=== PATIENT | female | born 1995 | race African-American/Black ===

== ENCOUNTER 2019-07-06 06:35 | Inpatient (IN) ==
[2019-07-06] MEDS ORDERED: MEPERIDINE 50 MG/1 ML VIAL IV PRN (07:33)
[2019-07-06] MEDS ORDERED: ONDANSETRON 4 MG/2 ML VIAL IV PRN (07:33)
[2019-07-06] MEDS ORDERED: BUTORPHANOL 2 MG/ML VIAL IV PRN (07:33)
[2019-07-06] MEDS ORDERED: diphenhydrAMINE 50 MG/1 ML VIAL IV PRN ×2 (07:39)
[2019-07-06] MEDS ORDERED: PROMETHAZINE 25 MG/1 ML VIAL IM ONE (07:39)
[2019-07-06] MEDS ORDERED: hydrOXYzine HCL 25 MG/1 ML VIAL IM PRN (07:39)
[2019-07-06] MEDS ORDERED: NALOXONE 0.4 MG/ML VIAL IV PRN (07:39)
[2019-07-06] MEDS ORDERED: ePHEDrine 50 MG/ML AMP IV PRN (07:39)
[2019-07-06] MEDS ORDERED: LACTATED RINGERS 1,000 ML IV PRN (07:43)
[2019-07-06] MEDS ORDERED: CITRIC ACID/SODIUM CITRATE 30 ML UDCUP PO ONE (07:43)
[2019-07-06] MEDS ORDERED: FAMOTIDINE 20 MG/2 ML VIAL IV ONE (07:43)
[2019-07-06 08:03] LABS: Basophils % 0.5 % (0.0-0.8); Eosinophils # 0.1 10*3/uL (0.0-0.87); Eosinophils % 1.4 % (0.00-10.9); Hematocrit 35.9 VOL% (35.7-47.0); Hemoglobin 11.1 GM/DL (12.0-16.0); Immature Granulocytes % 0.5 %; Immature Granulocytes Absolute 0.04 #; Lymphocytes # 1.6 10*3/uL (1.4-4.0); Lymphocytes % 19.5 % (21.3-54.2); Mean Corpuscular HGB Conc 30.9 GM/DL (32-36); Mean Corpuscular Volume 80.5 FL (87-102); Mean Platelet Volume 12.7 FL (9.6-12.0); Monocytes % 8.3 % (1.7-12.7); Neutrophils % 69.8 % (38.7-73.9); Platelet Count 132 T/CUMM (130-400); Red Blood Count 4.46 MC/CUMM (3.8-5.5); Red Cell Distribution Width 15.9 % (9.3-17.3); White Blood Count 8.1 T/CUMM (4-12)
[2019-07-06] MEDS: OXYTOCIN/LR 20 UNIT/1,000 ML BAG IV SCH ×2 (08:07→19:07)
[2019-07-06] MEDS: LACTATED RINGERS 1,000 ML IV SCH ×2 (09:02→17:45)
[2019-07-06] MEDS: fentaNYL 2 MCG/ROPIV 0.2% EPID 100 ML EPIDURAL SCH ×2 (09:40→18:34)
[2019-07-06 11:12] LABS: Apearance,Urine CLEAR (Clear); Bacteria,Urine Occasional /HPF (Few); Bilirubin,Urine Negative (Negative); Blood, Urine Negative (Negative); Glucose,Urine (UA) Negative (Negative); Ketones,Urine 20 mg/dL (Negative); Nitrite,Urine Negative (Negative); Protein,Urine Negative; Urine Color Straw (Yellow); Urine Specific Gravity 1.012 (1.001-1.035); Urine Urobilinogen < 2.0 EU/DL (0.2-1.0); WBC,Urine <1 /HPF (0-6)
[2019-07-06] MEDS ORDERED: miSOPROStoL 200 MCG TABLET ONE (13:53)
[2019-07-06] MEDS ORDERED: METHYLERGONOVINE 0.2 MG/1 ML AMP ONE (13:54)
[2019-07-06] MEDS ORDERED: IBUPROFEN 800 MG TABLET PO ONE (18:22)
[2019-07-06] MEDS ORDERED: DIPH/TET/ACEL PERT BOOSTER VACCINE 0.5 ML VIAL IM ONE (20:17)
[2019-07-06] MEDS ORDERED: LANOLIN 50% CREAM 0.3 OZ TUBE TOP PRN (20:17)
[2019-07-06] MEDS ORDERED: RHO(D) IMMUNE GLOBULIN 300 MCG SYRINGE IM ONE (20:17)
[2019-07-06] MEDS ORDERED: HYDROCORTISONE 2.5% RECTAL CREAM 30 GM TUBE TOP PRN (20:17)
[2019-07-06] MEDS ORDERED: ACETAMINOPHEN 325 MG TABLET PO PRN (20:17)
[2019-07-06] MEDS ORDERED: BENZOCAINE 20%/MENTHOL 0.5% SPRAY 56 GM CAN TOP PRN (20:17)
[2019-07-06] MEDS ORDERED: OXYTOCIN/LR 20 UNIT/1,000 ML BAG IV ONE (20:17)
[2019-07-06] MEDS ORDERED: oxyCODONE/ACETAMINOPHEN 5-325 MG TABLET PO PRN (20:17)
[2019-07-06] MEDS ORDERED: MEASLES/MUMPS/RUBELLA VACCINE 0.5 ML VIAL SUBCUT ONE (20:17)
[2019-07-06] MEDS ORDERED: BISACODYL 10 MG SUPP RECTAL PRN (20:17)
[2019-07-06] MEDS ORDERED: WITCH HAZEL PADS 100/JAR TOP PRN (20:17)
[2019-07-06] MEDS: DOCUSATE SODIUM 100 MG CAPSULE PO SCH (20:28)
[2019-07-06] MEDS: oxyCODONE/ACETAMINOPHEN 5-325 MG TABLET PO PRN (20:29)
[2019-07-07] MEDS: oxyCODONE/ACETAMINOPHEN 5-325 MG TABLET PO PRN ×3 (04:41→17:51)
[2019-07-07 05:20] LABS: Basophils # 0.1 10*3/uL (0.0-0.2); Basophils % 0.3 % (0.0-0.8); Eosinophils # 0.2 10*3/uL (0.0-0.87); Hematocrit 33.2 VOL% (35.7-47.0); Hemoglobin 10.4 GM/DL (12.0-16.0); Immature Granulocytes % 0.6 %; Immature Granulocytes Absolute 0.11 #; Lymphocytes # 2.1 10*3/uL (1.4-4.0); Lymphocytes % 12.1 % (21.3-54.2); Mean Corpuscular HGB Conc 31.3 GM/DL (32-36); Mean Corpuscular Volume 80.4 FL (87-102); Mean Platelet Volume 11.8 FL (9.6-12.0); Monocytes % 9.1 % (1.7-12.7); Neutrophils % 76.9 % (38.7-73.9); Platelet Count 120 T/CUMM (130-400); Red Blood Count 4.13 MC/CUMM (3.8-5.5); Red Cell Distribution Width 15.9 % (9.3-17.3); White Blood Count 17.6 T/CUMM (4-12)
[2019-07-07] MEDS: IBUPROFEN 800 MG TABLET PO PRN ×2 (08:34→17:50)
[2019-07-07] MEDS: DOCUSATE SODIUM 100 MG CAPSULE PO SCH ×2 (09:15→20:54)
[2019-07-08] MEDS: IBUPROFEN 800 MG TABLET PO PRN ×2 (03:24→10:35)
[2019-07-08] MEDS: oxyCODONE/ACETAMINOPHEN 5-325 MG TABLET PO PRN (03:24)
[2019-07-08 07:35] VITALS: BP 109/65
[2019-07-08] MEDS: DOCUSATE SODIUM 100 MG CAPSULE PO SCH (09:04)
== END 2019-07-08 14:25 | disposition home or self-care (01) | DRG 540 ==
LOC: N.LD 06:35 → N.OB 20:17
PROVIDERS: ADMIT Obstetrics & Gynecology; ATTEND Obstetrics & Gynecology